=== PATIENT | male | born 2000 | race Caucasian/White ===

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

== ENCOUNTER 2021-04-17 15:36 | Emergency (ER) | payer OTHER, SELFPAY ==
--- NOTE | ~2021-04-17 | XR_ITS ---
EXAMINATION: XR thoracic spine 3V DATE: 04/17/2021 17:20 INDICATION: Back pain TECHNIQUE: AP, lateral and lateral swimmer's views of the thoracic spine were obtained. COMPARISON: None. FINDINGS: There is questionable anterior wedging of mid and lower thoracic vertebral bodies on the la teral view. The intervertebral disc spaces are maintained. Bone alignment is normal. The visualized p ortions of the thorax are unremarkable. IMPRESSION: 1. Questionable anterior vertebral body wedging with minimal lower thoracic spine. Further evaluation with CT is recommended. Reviewed, dictated and finalized at location A. [employer] TREE TRIMMING IMPRESSION: 1. Questionable anterior vertebral body wedging with minimal lower thoracic spi ne. Further evaluation with CT is recommended.
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
[2021-04-17 15:43] VITALS: BP 144/83; PULSE 113; RESP 18; TEMP 36.9; O2SAT 98
[2021-04-17 16:34] VITALS: BP 137/92; PULSE 98; RESP 20; O2SAT 98
[2021-04-17] MEDS: KETOROLAC (*BKC) 60 MG/2 ML VIAL IM (17:20)
[2021-04-17] MEDS: diazePAM (*CRX) 5 MG TABLET PO (17:20)
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
[2021-04-17 18:51] VITALS: BP 137/76; PULSE 78; RESP 18; O2SAT 99
--- NOTE | 2021-04-17 20:21 | PC.NURSE ---
[facility] has arrived and is aware that [facility] is aware that pt is going to [facility]
== END 2021-04-17 21:03 | disposition short-term general hospital (02) ==
PROVIDERS: Emergency Provider Emergency Medicine; PCP Nurse Practitioner Family
DX: S22.070A Wedge compression fracture of T9-T10 vertebra, initial encounter for closed fracture (principal); S22.080A Wedge compression fracture of T11-T12 vertebra, initial encounter for closed fracture; S22.068A Other fracture of T7-T8 thoracic vertebra, initial encounter for closed fracture; S22.078A Other fracture of T9-T10 vertebra, initial encounter for closed fracture; F17.290 Nicotine dependence, other tobacco product, uncomplicated; V48.5XXA Car driver injured in noncollision transport accident in traffic accident, initial encounter
CPT/HCPCS: 72072; 72128; 72131; 73562; 96372; 99285; A9270; J1885; L0140

== ENCOUNTER 2021-11-08 08:39 | Emergency (ER) | payer OTHER, SELFPAY ==
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
[2021-11-08 08:45] VITALS: BP 108/87; PULSE 89; RESP 20; TEMP 36.7; O2SAT 97
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
[2021-11-08] MEDS: LIDOCAINE, EPINEPHRINE, TETRACAINE VISCOUS SOLN 3 ML TOPICAL (09:25)
[2021-11-08] MEDS: LIDOCAINE HCL 1% LOCAL INJ 10 ML VIAL 20 ML (09:26)
--- NOTE | 2021-11-08 10:42 | PC.NURSE ---
DR ARMSTRONG SUTURING RIGHT HEEL OF FOOT
[2021-11-08 11:10] VITALS: BP 114/88; PULSE 78; RESP 20; TEMP 36.9; O2SAT 99
== END 2021-11-08 11:13 | disposition home or self-care (01) ==
PROVIDERS: Emergency Provider Family Medicine; PCP Nurse Practitioner Family
DX: S91.311A Laceration without foreign body, right foot, initial encounter (principal); W45.8XXA Other foreign body or object entering through skin, initial encounter
CPT/HCPCS: 12002; 73620; 99283

== ENCOUNTER 2022-02-05 15:27 | Emergency (ER) | payer OTHER, SELFPAY ==
[2022-02-05 15:40] VITALS: BP 154/90; PULSE 99; RESP 20; TEMP 36.6; O2SAT 98
--- NOTE | 2022-02-05 15:42 | ED.GENADULT ---
HPI - General Adult General Chief complaint: Skin/Abscess/Foreign Body Stated complaint: su alcala Time Seen by Provider: 02/05/22 15:38 History of Present Illness HPI narrative: Juan is a 22M with a PMH of asthma and an allergy that presented to the ED with a rash for a couple days. It started after he was in the [place] and was exposed to poison nelsy. It is worse on his right elbow crease, upper abdomen and back. He denies any SOB or wheezing. 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[employer] Exam Const: General: healthy appearing Nutritional Appearance: well nourished Orientation/consciousness: patient oriented x3 Limitations: no limitations HENMT: Head: normal to inspection Ears: external ears normal General nose exam: Normal external nose present Eyes: Conjunctivae: conjunctivae normal Pupils: Equal, round and reactive pupils present Neck: Neck: normal visual inspection Chest: Chest palpation & inspection: normal inspection of the chest Resp: Effort & Inspection: normal respiratory effort Cardio: Rate: regular rate Skin: General skin exam: normal color Other: There were multiple maculopapular rashes on the flexor crease of the right elbow, upper neck and upper abdomen with some vesicles starting to form Neuro: General: patient oriented x3 and moves all extremities Extrem: General: normal to inspection Psych: Mental Status: mental status grossly normal Course Vital Signs Vital signs: Vital Signs Temperature 97.9 F 02/05/22 15:40 Pulse Rate 99 02/05/22 15:40 Respiratory Rate 20 02/05/22 15:40 Blood Pressure 154/90 H 02/05/22 15:40 Pulse Oximetry 98 02/05/22 15:40 Oxygen Delivery Room Air 02/05/22 15:40 Temperature 97.9 F 02/05/22 15:40 Pulse Rate 88 02/05/22 16:09 Respiratory Rate 02/05/22 16:09 Blood Pressure 148/88 H 02/05/22 16:09 Pulse Oximetry 98 02/05/22 16:09 Oxygen Delivery Room Air 02/05/22 16:09 Medical Decision Making Vital Signs Vital Signs: Vital Signs Temperature 97.9 F 02/05/22 15:40 Pulse Rate 99 02/05/22 15:40 Respiratory Rate 20 02/05/22 15:40 Blood Pressure 154/90 H 02/05/22 15:40 Pulse Oximetry 98 02/05/22 15:40 Oxygen Delivery Room Air 02/05/22 15:40 Temperature 97.9 F 02/05/22 15:40 Pulse Rate 88 02/05/22 16:09 Respiratory Rate 02/05/22 16:09 Blood Pressure 148/88 H 02/05/22 16:09 Pulse Oximetry 98 02/05/22 16:09 Oxygen Delivery Room Air 02/05/22 16:09 Discharge Plan Discharge Clinical Impression: Poison nelsy dermatitis Patient Disposition: Home, Self-Care Condition: Stable Instructions: Poison Nelsy (ED) Prescriptions: New clobetasol 0.05 % cream 1 applic topical BID 14 Days Qty: 30 1RF No Action cephalexin 500 mg capsule 500 mg PO Q8H Qty: 15 0RF clindamycin HCl 300 mg capsule 300 mg PO Q6H Qty: 20 0RF Follow-up/Referrals: Renato,Radha Brown NP [Primary Care Provider] -
[2022-02-05] MEDS: methylPREDNISolone SOD SUCC 125 MG VIAL IM (15:51)
[2022-02-05 16:09] VITALS: BP 148/88; PULSE 88; RESP 20; O2SAT 98
== END 2022-02-05 16:16 | disposition home or self-care (01) ==
LOC: CHSED 15:57
PROVIDERS: Emergency Provider Family Medicine; PCP Nurse Practitioner Family
DX: L23.7 Allergic contact dermatitis due to plants, except food (principal)
CPT/HCPCS: 96372; 99283; J2930

== ENCOUNTER 2023-07-27 02:52 | Day surgery (SDC) | payer OTHER, SELFPAY ==
--- NOTE | 2023-07-22 12:43 | PC.NURSE ---
Report to the Outpatient Waiting Room, entrance under the green pavilion located off [facility], at time _1000__ on date _07/27/23_. Planned Procedure Time: _1200_. Time changes happen often and if your time is changed the preop area will call you the afternoon before. - You and your visitor will be asked to self-screen and do not enter if you have any COVID symptoms. - A mask is optional within the hospital at this time. Patients may have clear liquids (water, carbonated beverages, clear teas, apple juice) until 3 hours prior to surgery with a maximum of 20 ounces. - No food from midnight until time of surgery - Infants may have breast milk until 4 hours before surgery, infant formula 6 hours prior to surgery. - Children will be allowed to drink immediately following surgery. If applicable, please bring a bottle or sippy cup to assist with drinking. Juice, water, soda, and popsicles are readily available. For infants on formula, please bring formula the day of surgery. Pacifiers are allowed. Take the following medications with a SIP of water the morning of surgery: NONE DO NOT STOP ANY OF YOUR OTHER PRESCRIPTION MEDICATIONS PRIOR TO SURGERY ?EXCEPT THE FOLLOWING Medications to discontinue per physician NONE Date to take last dose Please no make-up, nail italian, hairspray, perfume, deodorant, or body powder the day of surgery. No jewelry (including any body piercings) or valuables the day of surgery, leave them at home. Please take a shower or bath the night before, or the morning of, surgery with HIBICLENS antibacterial soap. Wear comfortable, loose fitting clothing. Children are encouraged to wear pajamas. - Jewelry must be removed prior to entering the operating room. Rings and piercings that are not removed may be cut off. - The hospital will not accept responsibility for valuables. - Please leave all valuables, including medications, at home the day of surgery. If you are going home after surgery, a licensed local driver must drive you home. - NO public transportation without another adult if you receive anesthesia. - We recommend that an adult stay with you for 24 hours following discharge. - We also recommend that you do not drive, make important decision, drink alcoholic beverages, or take any drugs that were not prescribed by your health care provider for at least 24 hours after your discharge time. For Pediatric surgeries, we recommend two adults accompany the child home. Follow any additional instructions given to you from your surgeon. If you or anyone in your household have experienced Covid symptoms in the past week, please notify your surgeon or the nurse liaison at the phone number below for possible testing. Telephone instructions given to PATIENT and asked if any additional questions and then verbalized understanding. Patient advised to call surgeon office or pre surgery nurse liaison [phone] if any additional questions.
[2023-07-22 12:51] VITALS: BMI 29.4
[2023-07-27] VITALS (7 sets, daily range): BP systolic 109–139; BP diastolic 73–99; PULSE 77–100; RESP 12–20; TEMP 36.4–36.7; O2SAT 97–99
[2023-07-27] MEDS: LACTATED RINGERS 1,000 ML 30 ML IV CONT ×2 (10:35→13:05)
--- NOTE | 2023-07-27 10:54 | WPDHPUPDATE1 ---
History and Physical Update Update Date/Time: 07/27/23 10:54 History and Physical has been reviewed, including an updated exam of the patient. There are NO changes in the patient's condition. Risks, benefits, and alternatives have been discussed and questions answered. Patient agrees to proceed with procedure.
--- NOTE | 2023-07-27 11:17 | WPDANESEPPF ---
Anes - Initial Pre Proc Eval Procedure: Operation Date: 07/27/23 12:00 Proposed Procedures p Excision of Complicated Pilonidal Cyst - Martha Galarza MD Date/Time: 07/27/23 11:17 Surgeon: Martha Galarza MD Pre Op Diagnosis: Pilonidal Cyst Patient Data Age: 23 Gender: M Height: 1.78 m Weight: 91.2 kg Last Vital Signs Temp 98.0 F 07/27/23 10:29 Pulse 77 07/27/23 10:29 Resp 16 07/27/23 10:29 BP 137/89 07/27/23 10:29 Pulse Ox 99 07/27/23 10:29 O2 Del Method Room Air 07/27/23 10:29 Allergies Allergy/AdvReac Type Severity Reaction Status Date / Time No Known Allergies Allergy Mild Verified 07/27/23 10:19 Home Medications Medication Instructions Recorded Confirmed Type No Home Medications 07/22/23 07/22/23 History Patient hx anesthesia problems: none Family hx anesthesia problems: none Results Review: All pre-operative results and documents have been reviewed as part of the pre-operative evaluation. 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 Informed Consent: The patient's anesthetic plan and its attendant risks and benefits were discussed with the patient/family/POA. Questions were solicited and answers provided to the satisfaction of the patient/family/POA.
[2023-07-27] MEDS: ceFAZolin 2 GM/D5W 50 ML 2 GM/50 ML BAG IVPB (12:07)
[2023-07-27] MEDS: BUPIVACAINE/EPINEPHRINE 0.5% 30 ML VIAL INFILTRATE (12:39)
--- NOTE | 2023-07-27 13:01 | W.PM.PROC2 ---
Procedure Note - Detailed Date of Procedure 07/27/23 Pre-op Diagnosis Pilonidal Cyst, chronic abscess Post-op Diagnosis Same Procedure Performed excision of complicated pilonidal cyst, incision and drainage chronic abscess cavity Surgeon Martha Galarza MD Anesthesia General and Local Indications 23-year-old male presenting to the office with recurrent infected pilonidal cyst. Management with conservative therapy failed and now set up for excision. Findings 5 x 3 cm pilonidal cyst tract, multiple small openings, 10 cm away from largest opening there was a chronic abscess cavity, no current infection Description of Procedure The patient was taken to the operating room and placed in the prone position. After adequate induction of general anesthesia, the patient was prepped and draped in the normal sterile fashion. A time-out was then done to verify the patient's identity, as well as the procedure being performed. I began by localizing the area and around this pilonidal sinus tract. This larger tract was in the most inferior area. There were some smaller tracks noted superior. I used a probe to gain access to the tract. This was noted to track superiorly to the area of the chronic abscess. I then made an elliptical incision to include the pilonidal sinus tracts. This incision was carried through the dermis and posteriorly through the subcutaneous tissue to encompass the entire tract. I was able to excise the sinus tracts in full and will be sent to pathology for further review. Post excision the area measured 5 x 3 cm. There was an additional 5 cm tract to the chronic abscess cavity. I then gained hemostasis with the Bovie cautery. I then opened the previous chronic abscess cavity. No signs or symptoms of active infection were noted, although it did connect with the area of excision. The area was then locally anesthetized. I closed the subcutaneous tissue with 0 Vicryl suture. The skin was closed with 2-0 nylon mattress suture in interrupted fashion. Sterile dressing was then placed on the wounds. The patient tolerated the procedure and was extubated postoperatively. He will be transferred to the recovery room in stable condition. Estimated Blood Loss 10 Drains No Packing No Pathology Yes Complications No immediate complications Condition Stable Disposition PACU [facility] Billing Surgery - Charge Forward: Surgery Billing
[2023-07-27] MEDS: oxyCODONE HCL (*CRX) 5 MG TAB IR PO (13:59)
== END 2023-07-27 14:29 | disposition home or self-care (01) ==
PROVIDERS: PCP Nurse Practitioner Family; Visit Provider Surgery
PROC: (CPT 11772; principal; 2023-07-27 12:00)
DX: L05.01 Pilonidal cyst with abscess (principal); Z87.891 Personal history of nicotine dependence; E66.9 Obesity, unspecified; Z68.28 Body mass index [BMI] 28.0-28.9, adult
CPT/HCPCS: 11772; 88305; A9270; J0690; J1100; J1170; J2250; J2405; J2704; J3010; J7120

== ENCOUNTER 2023-09-19 15:15 | Emergency (ER) | payer OTHER, SELFPAY ==
--- NOTE | ~2023-09-19 | XR_ITS ---
XR elbow RT min 3V DATE: 09/19/2023 15:42 INDICATION: Erythema of right elbow. Rule out radiopaque foreign body TECHNIQUE: 3 views COMPARISON: None FINDINGS: No radiopaque soft tissue foreign body or subcutaneous emphysema. No fracture, dislocation, periosteal reaction or bone destruction or joint effusion. Joint spaces are preserved. IMPRESSION: Negative Reviewed, dictated and finalized at location A. IMPRESSION: Negative
[2023-09-19 15:15] VITALS: BP 136/100; PULSE 80; RESP 18; TEMP 36.8; O2SAT 98
--- NOTE | 2023-09-19 15:34 | ED.GENADULT ---
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 This is increased over the weekend. It is tender, warm, and red but no drainage. No injuries to the elbow prior to the onset of pain. No trauma or falls. In infancy, he had a growth plate injury to the right elbow that was treated conservatively without surgery and recovered. No other significant past medical history. No fevers or chills. He has taken anti-inflammatories for the pain, Tylenol. Related Data Allergies Allergy/AdvReac Type Severity Reaction Status Date / Time No Known Allergies Allergy Mild Verified 09/19/23 15:33 Review of Systems Review of Systems: All systems reviewed & are unremarkable except as noted in HPI and below Constitutional: Constitutional: Denies chills, Denies excessive sweating, Denies fatigue, Denies fever(s), Denies headache(s) and Denies weakness Eyes: Eyes: Denies change in vision and Denies photophobia ENT: Denies dysphagia, Denies dizziness, Denies headache(s), Denies lip swelling, Denies nasal congestion, Denies sore throat and Denies tongue swelling Cardiovascular: Cardiovascular: Denies chest pain, Denies syncope, Denies rapid heart rate and Denies dyspnea Respiratory: Respiratory: Denies cough, Denies dyspnea and Denies wheezing Gastrointestinal: Gastrointestinal: Denies abdominal pain, Denies constipation, Denies dysphagia, Denies diarrhea, Denies nausea and Denies vomiting Genitourinary: Genitourinary: Denies hematuria, Denies dysuria, Denies urinary frequency and Denies urinary urgency Musculoskeletal: Musculoskeletal: Denies back pain, Denies myalgias, Reports arthralgias ( Right elbow), Reports joint swelling ( right elbow) and Denies numbness Integumentary/Breasts: Skin/Breast: Denies pruritus, Reports erythema ( right elbow) and Denies rash Neurologic: Denies confusion, Denies dizziness, Denies syncope, Denies headache(s), Denies focal weakness, Denies numbness and Denies weakness Psychiatric: Psychiatric: Denies anxiety and Denies confusion Endocrine: Endocrine: Denies excessive sweating and Denies fatigue Hematologic/Lymphatic: Hematologic/Lymphatic: Denies easy bleeding and Denies easy bruising Allergic/Immunologic: Allergic/Immunologic: Denies lip swelling, Denies tongue swelling and Denies wheezing PMFSH Past Medical History Medical History Healthy adult male Surgical History Surgical History Ganglion cyst History of excision of pilonidal cyst excision of complicated pilonidal cyst, incision and drainage chronic abscess cavity 07/27/23 Social History Social History Smoking status: Former smoker Tobacco type: e-cigarettes/vaping Additional smoking assessment comments: 5YRS Alcohol intake: current Drinks per week: 10 Alcohol use details: occasionally Substance use: never Substance use type: does not use Living arrangements: alone Occupation/Education: occupation 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
[2023-09-19 15:51] LABS: Basophils Absolute Auto 0.04 K/mm3 (0.00-0.10); Basophils Percent Auto 0.4 % (0.0-1.0); Eosinophils Absolute Auto 0.54 K/mm3 (0.02-0.50); Eosinophils Percent Auto 5.4 % (1.0-6.0); Hematocrit 43.5 % (40.0-54.0); Hemoglobin 14.6 g/dL (14.0-18.0); Immature Granulocyte Absolute 0.03 K/mm3 (0.00-0.00); Immature Granulocyte Percent A 0.3 % (0.0-0.0); Lymphocytes Absolute Auto 2.42 K/mm3 (1.10-4.50); Lymphocytes Percent Auto 24.2 % (18.0-42.0); Mean Corpuscular HGB Conc 33.6 g/dL (32-36); Mean Corpuscular Volume 92.4 fL (78.0-102.0); Mean Platelet Volume 9.4 fl (8.7-11.0); Monocytes Absolute Auto 1.18 K/mm3 (0.10-0.90); Monocytes Percent Auto 11.8 % (2.0-11.0); Neutrophils Percent Auto 57.9 % (50.0-70.0); Platelet Count Result 259 K/mm3 (150-420); Red Blood Count 4.71 M/mm3 (4.70-6.10); Red Cell Distribution Width 11.1 % (11.6-14.4)
[2023-09-19 16:07] LABS: Alanine Aminotransferase 43 U/L (16-63); Alkaline Phosphatase 44 U/L (46-116); Anion Gap 10 mmol/L (4-12); Aspartate Amino Transferase 19 U/L (15-37); Bilirubin,Total 1.6 mg/dL (0.00-1.00); Blood Urea Nitrogen 10 mg/dL (7-18); CRP 1.3 mg/dL (0.0-0.9); Calcium 8.6 mg/dL (8.5-10.1); Carbon Dioxide 29 mmol/L (21-32); Chloride 99 mmol/L (98-108); Estimated CRCL calculation 131 ml/min; Estimated Glomerular Filt Rate > 60; Glucose 87 mg/dL (70-99); Osmolality Calculated 284 mOsm/kg (285-295); Potassium 3.6 mmol/L (3.5-5.1); Sodium 138 mmol/L (136-145); Total Protein 7.8 g/dL (6.4-8.2)
[2023-09-19] MEDS: cefTRIAXone 2 GM/NS 100 ML 2 GM/100 ML BAG IVPB (16:08)
[2023-09-19] MEDS: KETOROLAC 30 MG/ML VIAL (*BKC) IV PUSH (16:08)
[2023-09-19 16:10] LABS: Lactic Acid Reflex 0.6 mmol/L (0.4-2.0)
[2023-09-19] MEDS: VANCOMYCIN 1,500 MG/NS 500 ML 1,500 MG/500 ML BAG 333.33 MG IVPB (16:45)
[2023-09-19 16:55] LABS: Erythrocyte Sedimentation Rate 17 mm/hr (0-15)
[2023-09-19 17:35] VITALS: BP 134/82; PULSE 73; RESP 18; TEMP 37; O2SAT 99
--- NOTE | 2023-09-19 18:26 | PC.NURSE ---
182 DR NORMAN SPOKE WITH DR MARY ABOUT FURTHER CARE FOR FOLLOW UP IN HIS OFFICE
[2023-09-19 18:34] VITALS: BP 132/97; PULSE 75; RESP 16; TEMP 36.9; O2SAT 98
--- NOTE | 2023-09-25 13:53 | PC.NURSE ---
blood culture reviewed, no growth 5 days
== END 2023-09-19 18:43 | disposition home or self-care (01) ==
PROVIDERS: Emergency Provider Emergency Medicine
DX: M70.21 Olecranon bursitis, right elbow (principal); Z87.891 Personal history of nicotine dependence
CPT/HCPCS: 36415; 73080; 80053; 83605; 85025; 85652; 86140; 87040; 96365; 96366; 96367; 96375; 99284; J0696; J1885; J3370

== ENCOUNTER 2024-06-13 08:03 | Outpatient (CLI) | payer OTHER, SELFPAY ==
--- NOTE | ~2024-06-13 | US_ITS ---
Abdominal Sonogram: Real-time sonographic imaging of the abdomen was performed. Clinical History: Abdominal pain Findings: The liver appears normal with no evidence of mass lesion or bile duct dilatation. Main por josep vein demonstrates normal direction of flow. The spleen is normal in size without evidence of foca l lesion. The gallbladder is well distended, and appears normal with no evidence of gallstone or wal l thickening. The common bile duct measures 4 mm. The visualized pancreas, aorta, and IVC are unrema rkable. The right kidney measures 9.6 cm in length and the left kidney measures 11.6 cm. There is n o hydronephrosis or renal calculus. Impression: Unremarkable abdominal ultrasound. Reviewed, dictated and finalized at location . AULIC CORRUGATING MACHINE OPERATOR Impression: Unremarkable abdominal ultrasound.
--- NOTE | 2024-06-13 08:08 | ECG_ITS ---
Test Date: 2024-06-13 08:35:20 Measurements Intervals [place] Rate: 49 P: 21 VT: 142 QRS: 112 QRSD: 125 T: 12 QT: 407 QTc: 371 Interpretive Statements SINUS BRADYCARDIA WITH MARKED SINUS ARRHYTHMIA RIGHT AXIS DEVIATION CONSIDER INFERIOR INFARCT, AGE INDETERMINATE ABNORMAL ECG No previous ECG available for comparison Electronically Signed On 06-13-2024 08:34:47 RAW STOCK DYEING MACHINE TENDER by Dylan Sumner D.O.
--- OUTSIDE RECORDS SUMMARY | 2024-06-13 08:09 | XMS_ITS | Clinical Summary ---
Author Organization [facility] Address [address] [place] [address] Care Team Providers Care Jd Edwards Developer Name Role Phone Unavailable Primary Care Provider Unavailabl e Source Comments [facility],non-owned Affiliates and Associated Physician Practices is amultiple site organization consisting of ambulatory clinics and hospital sitesin [place], [place], [place] and [place]. This disclosure is being madepursuant to the Care Everywhere program and may not contain all information available regarding this patient. Last updated 18.[facility] Allergies No known active allergies Medications Be aware that medications may not be up to date on this document. Always verify current medications with the patient. No known medications Social History Tobacco Use Types Packs/Day Years Used Date Smoking Tobacco: Never Smokeless Tobacco: Never Alcohol Use Standard Drinks/Week Comments Never 0 (1 standard drink = 0.6 oz pur e alcohol) AUDIT-C Answer Date Recorded Frequency of Alcohol Consumption Never 07/11/2019 Average Number of Drinks Not on file 020 Frequency of Binge Drinking Not on file 08/2019 Sex and Gender Information Value Date Recorded Sex Assigned at Not on file Gender Identity Not on file Sexual Orientation Not on file Last Filed Vital Signs Vital Sign Reading Time Taken Comments Blood Pressure 118/74 07/11/2019 9:45 AM FIRE PILOT Pulse 78 07/11/2019 9:45 AM FIRE PILOT Temperature 36.6 ??C (97.8 ??F) 07/11/2019 9:45 AM CS T Respiratory Rate 16 07/11/2019 9:45 AM FIRE PILOT Oxygen Saturation 96% 07/11/2019 9:45 AM FIRE PILOT Inhaled Oxygen Concentration - - Weight 75.3 kg (166 lb) 07/11/2019 9:45 AM FIRE PILOT Height 177.8 cm (5' 10 ) 07/11/2019 9:45 AM FIRE PILOT Body Mass Index 23.82 07/11/2019 9:45 AM FIRE PILOT Plan of Treatment Health Maintenance Due Date Last Done Comments HIV SCREENING 01/03/2016 HPV VACCINE (1 - Male 3-dose series) 01/03/2016 MENINGOCOCCAL (Group B) VACC INE (1 of 2 - Standard) 2017 HEPATITIS C SCREENING 12/29/2018 DTAP/TDAP/TD VACCINES (1 - Tdap) 01/03/2020 HEPATITIS B VACCINE (1 of 3 - 19+ 3-dose series) 01/03/2020 COVID-19 VACCINE (1 - 2023-2 5 season) 2024 INFLUENZA VACCINE (#1) 2024 DEPRESSION SCREENING 05/09/2024 ZOSTER VACCINE (1 of 2) 2051 HIB VACCINE Aged Out No longer eligi ble based on patient's age to complete this topic MENINGOCOCCAL VACCINE Aged Out No thompson bita eligible based on patient's age to complete this topic PNEUMOCOCCAL VACCINE Aged Out No long er eligible based on patient's age to complete this topic JUAN DAN Personal/Family Spouse [address] BLOEMKER,JUAN Personal/Family Spouse [address] [id number] BLOEMREBEL,JUAN Personal/Family Spouse [address] [id number] BLOEMREBEL,JUAN Personal/Family Spouse [address] [id number] SY,JUAN Personal/Family Spouse [address] [id number]
--- OUTSIDE RECORDS SUMMARY | 2024-06-13 08:09 | XMS_ITS | Referral Summary ---
Author Organization [facility] [employer] Address [address] [place] [address] Care Team Providers Care Automotive Refinish Technician Name Role Phone Unavailable Primary Care Provider Unavailabl e Source Comments [facility] [employer],non-owned Affiliates and Associated Physician Practices is amultiple site organization consisting of ambulatory clinics and hospital sitesin [place], [place], [place] and [place]. This disclosure is being madepursuant to the Care Everywhere program and may not contain all information available regarding this patient. Last updated 18.[facility] [employer] Allergies No known active allergies Medications Be [...] Comments Blood Pressure 118/74 07/11/2019 9:45 AM FAMILY RESOURCE MANAGEMENT SPECIALIST Pulse 78 07/11/2019 9:45 AM FAMILY RESOURCE MANAGEMENT SPECIALIST Temperature 36.6 ??C (97.8 ??F) 07/11/2019 9:45 AM CS T Respiratory Rate 16 07/11/2019 9:45 AM FAMILY RESOURCE MANAGEMENT SPECIALIST Oxygen Saturation 96% 07/11/2019 9:45 AM FAMILY RESOURCE MANAGEMENT SPECIALIST Inhaled Oxygen Concentration - - Weight 75.3 kg (166 lb) 07/11/2019 9:45 AM FAMILY RESOURCE MANAGEMENT SPECIALIST Height 177.8 cm (5' 10 ) 07/11/2019 9:45 AM FAMILY RESOURCE MANAGEMENT SPECIALIST Body Mass Index 23.82 07/11/2019 9:45 AM FAMILY RESOURCE MANAGEMENT SPECIALIST Plan of Treatment Not on file
--- OUTSIDE RECORDS SUMMARY | 2024-06-13 08:09 | XMS_ITS | Patient Health Summary ---
Author Organization [facility] [employer] Address [address] [place] [address] Care Team Providers Care Correction Lieutenant Name Role Phone Unavailable Primary Care Provider Unavailabl e Note from [facility],non-owned Affiliates and Associated Physician Practices is amultiple site organization consisting of ambulatory clinics and hospital sitesin [place], [place], [place] and [place]. This disclosure is being madepursuant to the Care Everywhere program and may not contain all information available regarding this patient. Last updated 18.[facility] [employer] Allergies No known active allergies Medications Be [...] Comments Blood Pressure 118/74 07/11/2019 9:45 AM ONCOLOGIST Pulse 78 07/11/2019 9:45 AM ONCOLOGIST Temperature 36.6 ??C (97.8 ??F) 07/11/2019 9:45 AM CS T Respiratory Rate 16 07/11/2019 9:45 AM ONCOLOGIST Oxygen Saturation 96% 07/11/2019 9:45 AM ONCOLOGIST Inhaled Oxygen Concentration - - Weight 75.3 kg (166 lb) 07/11/2019 9:45 AM ONCOLOGIST Height 177.8 cm (5' 10 ) 07/11/2019 9:45 AM ONCOLOGIST Body Mass Index 23.82 07/11/2019 9:45 AM ONCOLOGIST
--- OUTSIDE RECORDS SUMMARY | 2024-06-13 08:09 | XMS_ITS | Referral Summary ---
Author Organization [facility] Address [address] [place] [address] Care Team Providers Care Reed Or Wind Instrument Repairer Name Role Phone No, Physician Primary Care Provider [phone] Allergies No known active allergies Medications No known medications Active Problems Problem Noted Date Diagnosed Date Compression fracture of T9 vertebra 04/18/2021 Acute pain 04/18/2021 Fracture of elbow 08/08/2014 Social History Tobacco Use Types Packs/Day Years Used Date Smoking Tobacco: Every Day Vaping AUDIT-C Answer Date Recorded Q1: How often do you have a drink containing alc ohol? 2-4 times a month 06/09/2021 Q2: How many drinks containi ng alcohol do you have on a typical day when you are drinking? 1 or 2 06/09/2021 Frequency of Binge Drinking Not on file 05/2021 Personal Safety Answer Date Recorded Getting School Help Needed Not on file 07/03 Sex and Gender Information Value Date Recorded Sex Assigned at Not on file Legal Sex Male 3:40 AM CAR FILLER Gender Identity Not on file Sexual Orientation Not on file Last Filed Vital Signs Vital Sign Reading Time Taken Comments Blood Pressure 143/95 04/19/2021 9:25 AM CAR FILLER Pulse 59 04/19/2021 9:30 AM CAR FILLER Temperature 37.2 ??C (99 ??F) 04/19/2021 9:00 AM CAR FILLER Respiratory Rate 18 04/19/2021 9:00 AM CAR FILLER Oxygen Saturation 97% 04/19/2021 9:25 AM CAR FILLER Inhaled Oxygen Concentration - - Weight 95.3 kg (210 lb) 06/09/2021 4:30 PM CAR FILLER Height 174 cm (5' 8.5 ) 06/09/2021 4:30 PM CAR FILLER Body Mass Index 31.47 06/09/2021 4:30 PM CAR FILLER Plan of Treatment Not on file Insurance Coupon [employer] OPEN ACCESS [employer] OPEN ACCESS Advance Directives For more information, please contact: [phone] * Full Code (Latest Code Status on File) Date Activated Date Inactivated Comments 04/18/2021 7:40 AM 04/19/2021 8:52 PM Care Teams Reed Or Wind Instrument Repairer Relationship Specialty Start Date End Date No, Physician PCP - General 06/02/21
--- OUTSIDE RECORDS SUMMARY | 2024-06-13 08:09 | XMS_ITS | Clinical Summary ---
Author Organization [facility] Address [address] [place] [address] Care Team Providers Care Disposal Operator Name Role Phone No, Physician Primary Care Provider [phone] Allergies No known active allergies Medications No known medications Active Problems Problem Noted Date Diagnosed Date Compression fracture of T9 vertebra 04/18/2021 Acute pain 04/18/2021 Fracture of elbow 08/08/2014 Family History Medical History Relation Name Comments Arthritis Mother Family history of arthritis - (Added by TW Conv) Cancer Other Family history of malignant neoplasm - Relation: Grandparent (Added by TW Conv) Relation Name Status Comments Mother Other Social History Tobacco Use Types Packs/Day Years [...] on file Legal Sex Male 3:40 AM REGULATION SUPERVISOR Gender Identity Not on file Sexual Orientation Not on file Obstetrics History Last Filed Vital Signs Vital Sign Reading Time Taken Comments Blood Pressure 143/95 04/19/2021 9:25 AM REGULATION SUPERVISOR Pulse 59 04/19/2021 9:30 AM REGULATION SUPERVISOR Temperature 37.2 ??C (99 ??F) 04/19/2021 9:00 AM REGULATION SUPERVISOR Respiratory Rate 18 04/19/2021 9:00 AM REGULATION SUPERVISOR Oxygen Saturation 97% 04/19/2021 9:25 AM REGULATION SUPERVISOR Inhaled Oxygen Concentration - - Weight 95.3 kg (210 lb) 06/09/2021 4:30 PM REGULATION SUPERVISOR Height 174 cm (5' 8.5 ) 06/09/2021 4:30 PM REGULATION SUPERVISOR Body Mass Index 31.47 06/09/2021 4:30 PM REGULATION SUPERVISOR Plan of Treatment Not on file Insurance [employer] OPEN ACCESS Advance Directives For more information, please contact: [phone] * Full Code (Latest Code Status on File) Date Activated Date Inactivated Comments 04/18/2021 7:40 AM 04/19/2021 8:52 PM Care Teams Disposal Operator Relationship Specialty Start Date End Date No, Physician PCP - General 06/02/21
== END 2024-06-13 08:04 | disposition home or self-care (01) ==
LOC: CHSIMG 08:04
PROVIDERS: PCP Nurse Practitioner Family; Visit Provider Nurse Practitioner Family
DX: Z01.818 Encounter for other preprocedural examination (principal); R10.9 Unspecified abdominal pain; R00.2 Palpitations; R00.1 Bradycardia, unspecified; R94.31 Abnormal electrocardiogram [ECG] [EKG]
CPT/HCPCS: 76700; 93005

== ENCOUNTER 2024-06-19 15:46 | Outpatient (CLI) | payer OTHER, SELFPAY ==
--- NOTE | 2024-06-19 15:51 | ECHO_ITS ---
Patient Info Name: Juan Milner Age: 24 years : 2000 Gender: Male Ht: 70 in Wt: 225 lbs BSA: 2.28 m2 HR: 75 bpm BP: 136 / 77 mmHg Heart Rhythm: Sinus Rhythm Technical Quality: Good Exam Date: 06/19/2024 4:30 PM Exam Location: Echo Lab Patient Status: Outpatient Admit Date: 06/19/2024 Staff Ordering Physician: Karina Wilder NP Capping Machine Operator: Nicolasa Gutierrez RDCS Attending Provider: Karina Wilder NP Referring Physician: Tina PANG; Exam Type: CA echo doppler color flow Study Info Indications - Abn EKG Complete two-dimensional, color flow and Doppler transthoracic echocardiogram is performed. Summary 1. Complete two-dimensional, color flow and Doppler transthoracic echocardiogram is performed. 2. Left ventricular chamber dimension is normal. 3. Left ventricular systolic function is normal, estimated at 60-65%. 4. The left ventricular diastolic function is normal. 5. E/e' 5 is not elevated. 6. There is trace pulmonic regurgitation. Left Ventricle E/e' 5 is not elevated. Left ventricular chamber dimension is normal. Left ventricular systolic function is normal, estimated at 60-65%. The left ventricular diastolic function is normal. Right Ventricle Right ventricular systolic function is normal and with normal TAPSE 2.0 cm. Right ventricular chamber dimension is normal. Left Atria Left atrial chamber dimension is normal. Right Atria Right atrial chamber dimension is normal. Aortic Valve The aortic valve is trileaflet. There is no aortic valve stenosis. There is no aortic valve regurgitation. Pulmonic Valve There is trace pulmonic regurgitation. Mitral Valve There is no mitral valve stenosis. There is no mitral valve regurgitation. Tricuspid Valve There is no tricuspid valve regurgitation. Pericardium/Pleural There is no pericardial effusion. Inferior Vena Cava Normal inferior vena cava with >50% collapse upon inspiration consistent with normal right atrial pressure, 5 mmHg. Aorta The aortic root size at the sinus of Valsalva is normal. Left Ventricular Outflow Tract Name Value Normal LVOT 2D LVOT Diameter 2.3 cm LVOT Doppler LVOT Peak Velocity 109 cm/s LVOT Peak Gradient 5 mmHg LVOT Mean Gradient 3 mmHg LVOT VTI 22 cm LVOT VTI/AV VTI Ratio 0.9 LVOT Stroke Volume 95 ml Pulmonic Valve Name Value Normal PV Doppler PV Peak Velocity 93 cm/s PV Peak Gradient 3 mmHg PV Regurgitation Doppler OK Peak End Diastolic Velocity 80 cm/s Mitral Valve Name Value Normal MV Doppler MV Peak Gradient 3 mmHg MV Mean Gradient 1 mmHg MV Decel Winston 351 cm/s2 MV PHT 65 ms MV Area (PHT) 3.4 cm2 4.0-5.0 MV Area (Cont Eq VTI) 4.4 cm2 MV Diastolic Function MV E Peak Velocity 79 cm/s MV A Peak Velocity 53 cm/s MV E/A 1.5 MV Decel Time 225 ms Tricuspid Valve Name Value Normal TV Regurgitation Doppler TR Peak Velocity 246 cm/s TR Peak Gradient 22 mmHg Estimated PAP/RSVP RA Pressure 5 mmHg <=5 PA Systolic Pressure 29 mmHg <36 RV Systolic Pressure 29 mmHg <36 Aortic Valve Name Value Normal AV Doppler AV Peak Velocity 118 cm/s AV Peak Gradient 6 mmHg AV Mean Gradient 3 mmHg AV VTI 25 cm AV Area (Cont Eq VTI) 3.8 cm2 >=3.0 AV Area (Cont Eq Jun) 3.9 cm2 AV V1/V2 Ratio 0.92 AV Regurgitation 2D LVOT Area 4.3 cm2 Ventricles Name Value Normal LV Dimensions 2D/MM IVS Diastolic Thickness (2D) 0.8 cm 0.6-1.0 LVID Diastole (2D) 5.1 cm 4.2-5.8 LVIW Diastolic Thickness (2D) 0.8 cm 0.6-1.0 LVID Systole (2D) 3.7 cm 2.5-4.0 LVOT Diameter 2.3 cm LV Mass (2D Cubed) 137.96 g 88.00-224.00 LV Mass Index (2D Cubed) 61 g/m2 49-115 Relative Wall Thickness (2D) 0.32 LV Fractional Shortening/Ejection Fraction 2D/MM LV Fractional Shortening (2D) 28 % 25-43 LV EF (2D Teicholz) 54 % 52-72 LV Diastolic Volume (4C MOD) 164 ml LV EF (4C MOD) 52 % LV Diastolic Volume (2C MOD) 178 ml LV EF (2C MOD) 62 % LV Diastolic Volume (BP MOD) 171 ml 62-150 LV Diastolic Volume Index (BP MOD) 75 ml/m2 34-74 LV Systolic Volume (BP MOD) 76 ml 21-61 LV Systolic Volume Index (BP MOD) 34 ml/m2 11-31 LV EF (BP MOD) 55 % 52-72 LV Diastolic Length (4C) 9.8 cm LV Systolic Length (4C) 7.6 cm LV Stroke Volume (4C MOD) 85 ml Atria Name Value Normal LA Dimensions LA Volume (4C A-L) 58 ml LA Volume (BP A-L) 63 ml RA Dimensions RA Area (4C) 17.5 cm2 <=18.0 Report Signatures
--- OUTSIDE RECORDS SUMMARY | 2024-06-19 16:17 | XMS_ITS | Referral Summary ---
Author Organization [facility] Address [address] [place] [address] Care Team Providers Care Clinical Laboratory Science Professor Name Role Phone No, Physician Primary Care Provider [phone] Allergies No known active allergies Medications No [...] on file Legal Sex Male 3:40 AM CONCERT OR LECTURE HALL MANAGER Gender Identity Not on file Sexual Orientation Not on file Last Filed Vital Signs Vital Sign Reading Time Taken Comments Blood Pressure 143/95 04/19/2021 9:25 AM CONCERT OR LECTURE HALL MANAGER Pulse 59 04/19/2021 9:30 AM CONCERT OR LECTURE HALL MANAGER Temperature 37.2 C (99 F) 04/19/2021 9:00 AM CONCERT OR LECTURE HALL MANAGER Respiratory Rate 18 04/19/2021 9:00 AM CONCERT OR LECTURE HALL MANAGER Oxygen Saturation 97% 04/19/2021 9:25 AM CONCERT OR LECTURE HALL MANAGER Inhaled Oxygen Concentration - - Weight 95.3 kg (210 lb) 06/09/2021 4:30 PM CONCERT OR LECTURE HALL MANAGER Height 174 cm (5' 8.5 ) 06/09/2021 4:30 PM CONCERT OR LECTURE HALL MANAGER Body Mass Index 31.47 06/09/2021 4:30 PM CONCERT OR LECTURE HALL MANAGER Plan of Treatment Not on file Insurance [employer] OPEN ACCESS CIGNA OPEN ACCESS Advance Directives For more information, please contact: [phone] * Full Code (Latest Code Status on File) Date Activated Date Inactivated Comments 04/18/2021 7:40 AM 04/19/2021 8:52 PM Care Teams Clinical Laboratory Science Professor Relationship Specialty Start Date End Date No, Physician PCP - General 06/02/21
--- OUTSIDE RECORDS SUMMARY | 2024-06-19 16:17 | XMS_ITS | Clinical Summary ---
Author Organization [facility] Address [address] [place] [address] Care Team Providers Care Web Content Producer Name Role Phone Unavailable Primary Care Provider Unavailabl e Source Comments [facility],non-owned Affiliates and Associated Physician Practices is amultiple site organization consisting of ambulatory clinics and hospital sitesin [place], [place], [place] and [place]. This disclosure is being madepursuant to the Care Everywhere program and may not contain all information available regarding this patient. Last updated 18.[facility] Allergies No known active allergies Medications Be [...] Comments Blood Pressure 118/74 07/11/2019 9:45 AM BILLING CONTROL CLERK Pulse 78 07/11/2019 9:45 AM BILLING CONTROL CLERK Temperature 36.6 C (97.8 F) 07/11/2019 9:45 AM BILLING CONTROL CLERK Respiratory Rate 16 07/11/2019 9:45 AM BILLING CONTROL CLERK Oxygen Saturation 96% 07/11/2019 9:45 AM BILLING CONTROL CLERK Inhaled Oxygen Concentration - - Weight 75.3 kg (166 lb) 07/11/2019 9:45 AM BILLING CONTROL CLERK Height 177.8 cm (5' 10 ) 07/11/2019 9:45 AM BILLING CONTROL CLERK Body Mass Index 23.82 07/11/2019 9:45 AM BILLING CONTROL CLERK Plan of Treatment Health Maintenance Due Date [...] on patient's age to complete this topic SY,JUAN Personal/Family Spouse [address] [id number] SY,JUAN Personal/Family Spouse [address] [id number] SY,JUAN Personal/Family Spouse [address] [phone] SY,JUAN Personal/Family Spouse [address] [place] [address]
--- OUTSIDE RECORDS SUMMARY | 2024-06-19 16:17 | XMS_ITS | Clinical Summary ---
Author Organization [facility] Address [address] [place] [address] Care Team Providers Care Summons Server Name Role Phone No, Physician Primary Care Provider [phone] Allergies No known active allergies Medications No [...] on file Legal Sex Male 3:40 AM MACHINE SAND MIXER Gender Identity Not on file Sexual Orientation Not on file Obstetrics History Last Filed Vital Signs Vital Sign Reading Time Taken Comments Blood Pressure 143/95 04/19/2021 9:25 AM MACHINE SAND MIXER Pulse 59 04/19/2021 9:30 AM MACHINE SAND MIXER Temperature 37.2 C (99 F) 04/19/2021 9:00 AM MACHINE SAND MIXER Respiratory Rate 18 04/19/2021 9:00 AM MACHINE SAND MIXER Oxygen Saturation 97% 04/19/2021 9:25 AM MACHINE SAND MIXER Inhaled Oxygen Concentration - - Weight 95.3 kg (210 lb) 06/09/2021 4:30 PM MACHINE SAND MIXER Height 174 cm (5' 8.5 ) 06/09/2021 4:30 PM MACHINE SAND MIXER Body Mass Index 31.47 06/09/2021 4:30 PM MACHINE SAND MIXER Plan of Treatment Not on file Insurance listedplaces OPEN ACCESS CIG[employer] OPEN ACCESS Advance Directives For more information, please contact: [phone] * Full Code (Latest Code Status on File) Date Activated Date Inactivated Comments 04/18/2021 7:40 AM 04/19/2021 8:52 PM Care Teams Summons Server Relationship Specialty Start Date End Date No, Physician PCP - General 06/02/21
--- OUTSIDE RECORDS SUMMARY | 2024-06-19 16:17 | XMS_ITS | Patient Health Summary ---
Author Organization [facility] [employer] Address [address] [place] [address] Care Team Providers Care Vinyl Flooring Installer Name Role Phone Unavailable Primary Care Provider Unavailabl e Note from [facility],non-owned Affiliates and Associated Physician Practices is amultiple site organization consisting of ambulatory clinics and hospital sitesin [place], [place], [place] and [place]. This disclosure is being madepursuant to the Care Everywhere program and may not contain all information available regarding this patient. Last updated 18.[facility] [employer] Allergies No known active allergies Medications Be [...] Comments Blood Pressure 118/74 07/11/2019 9:45 AM CERAMIC MOLD DESIGNER Pulse 78 07/11/2019 9:45 AM CERAMIC MOLD DESIGNER Temperature 36.6 C (97.8 F) 07/11/2019 9:45 AM CERAMIC MOLD DESIGNER Respiratory Rate 16 07/11/2019 9:45 AM CERAMIC MOLD DESIGNER Oxygen Saturation 96% 07/11/2019 9:45 AM CERAMIC MOLD DESIGNER Inhaled Oxygen Concentration - - Weight 75.3 kg (166 lb) 07/11/2019 9:45 AM CERAMIC MOLD DESIGNER Height 177.8 cm (5' 10 ) 07/11/2019 9:45 AM CERAMIC MOLD DESIGNER Body Mass Index 23.82 07/11/2019 9:45 AM CERAMIC MOLD DESIGNER
--- OUTSIDE RECORDS SUMMARY | 2024-06-19 16:17 | XMS_ITS | Referral Summary ---
Author Organization [facility] Address [address] [place] [address] Care Team Providers Care Baffle Installer Name Role Phone Unavailable Primary Care Provider Unavailabl e Source Comments [facility],non-owned Affiliates and Associated Physician Practices is amultiple site organization consisting of ambulatory clinics and hospital sitesin [place], [place], [place] and [place]. This disclosure is being madepursuant to the Care Everywhere program and may not contain all information available regarding this patient. Last updated 18.[facility] Allergies No known active allergies Medications Be [...] Comments Blood Pressure 118/74 07/11/2019 9:45 AM RAIL WASHER Pulse 78 07/11/2019 9:45 AM RAIL WASHER Temperature 36.6 C (97.8 F) 07/11/2019 9:45 AM RAIL WASHER Respiratory Rate 16 07/11/2019 9:45 AM RAIL WASHER Oxygen Saturation 96% 07/11/2019 9:45 AM RAIL WASHER Inhaled Oxygen Concentration - - Weight 75.3 kg (166 lb) 07/11/2019 9:45 AM RAIL WASHER Height 177.8 cm (5' 10 ) 07/11/2019 9:45 AM RAIL WASHER Body Mass Index 23.82 07/11/2019 9:45 AM RAIL WASHER Plan of Treatment Not on file
== END 2024-06-19 15:47 | disposition home or self-care (01) ==
LOC: CHSIMG 15:48
PROVIDERS: PCP Nurse Practitioner Family; Visit Provider Nurse Practitioner Family
DX: R00.2 Palpitations (principal); R94.31 Abnormal electrocardiogram [ECG] [EKG]
CPT/HCPCS: 93306